=== PATIENT | male | born 1975 | race Caucasian/White ===

== ENCOUNTER 2020-05-30 10:50 | Emergency (ER) | payer BC, SELFPAY ==
[2020-05-30] VITALS (11 sets, daily range): BP systolic 123–146; BP diastolic 85–93; PULSE 93–118; RESP 14–23; TEMP 38.8–38.9; O2SAT 93–96
--- NOTE | ~2020-05-30 | XR_ITS ---
EXAMINATION: XR chest 1V portable INDICATION: Worsening cough and fever TECHNIQUE: Portable AP chest at 1112 hours COMPARISON: None available FINDINGS: There are widespread patchy airspace opacities. No pleural effusion or pneumothorax is iden tified. The cardiomediastinal silhouette is normal. IMPRESSION: 1. Patchy bilateral airspace opacities, likely pneumonia. Reviewed, dictated and finalized at location A.
[2020-05-30] MEDS: SODIUM CHLORIDE 0.9% IV 1,000 ML 999 ML IV CONT (11:32)
[2020-05-30] MEDS: FAMOTIDINE 20 MG/2 ML VIAL IV PUSH (11:33)
[2020-05-30 12:00] LABS: Basophils Percent Auto 0.2 % (0.2-1.2); Hematocrit 48.6 % (42.0-52.0); Hemoglobin 16.9 g/dL (14.0-18.0); Immature Granulocyte Absolute 0.02 K/mm3 (0.00-0.031); Immature Granulocyte Percent A 0.4 % (0-0.5); Lymphocytes Absolute Auto 0.83 K/mm3 (0.9-3.2); Mean Corpuscular HGB Conc 34.8 g/dl (32-36); Mean Platelet Volume 10.5 fl (7.4-10.4); Monocytes Absolute Auto 0.4 K/mm3 (0.1-0.6); Neutrophils Absolute Auto 3.6 K/mm3 (1.3-6.7); Neutrophils Percent Auto 73.4 % (45.5-73.1); Platelet Count Result 127 k/mm3 (150-375); Red Blood Count 5.46 M/mm3 (4.6-6.20); Red Cell Distribution Width 11.9 % (11.5-14.5); White Blood Count 4.9 K/mm3 (4.5-10.0)
[2020-05-30 12:08] LABS: Prothrombin Time 12.6 Seconds (11.1-14.7)
[2020-05-30 12:09] LABS: Partial Thromboplastin Time 30.9 SECONDS (22.3-36.8)
[2020-05-30 12:18] LABS: Alanine Aminotransferase 53 U/L (4-50); Albumin Level 4.4 g/dL (3.5-5.1); Alkaline Phosphatase 73 U/L (38-126); Anion Gap 10 mmol/L (8-16); Aspartate Amino Transferase 56 U/L (17-59); Bilirubin,Total 0.6 mg/dL (0.2-1.3); Blood Urea Nitrogen 11 mg/dL (9-20); Calcium 8.6 mg/dL (8.4-10.2); Carbon Dioxide 27 mmol/L (22-30); Chloride 100 mmol/L (98-107); Estimated CRCL calculation 112 ml/min; Estimated Glomerular Filt Rate > 60; Glucose 103 mg/dL (75-110); Potassium 3.9 mmol/L (3.4-5.0); Sodium 137 mmol/L (137-145)
[2020-05-30 12:35] LABS: CRP 2.3 mg/dL (<1.0)
[2020-05-30 12:55] LABS: Lactic Acid Reflex 0.9 mmol/L (0.7-2.1)
[2020-05-30 13:00] LABS: Add Urine Microscopic? YES; Appearance Urine Clear (Clear); Bacteria Urine Trace /hpf; Bilirubin Urine Negative (Negative); Blood Urine Negative (Negative); Color Urine Yellow (Yellow); Glucose Urine UA Negative (Negative); Ketones Urine Trace mg/dL (Negative); Leukocyte Esterase Ur Negative LEU/UL (Negative); Mucus Urine Rare /lpf; Nitrate Urine Negative (Negative); Protein Urine 1+ mg/dL (Negative); RBC Urine 0-2 /hpf (0-2); Specific Grav Ur 1.028 (1.001-1.035); Squamous Epithelial Cell Urine Rare /hpf (Few); Urobilinogen Urine Negative mg/dL (<2.0); WBC Urine 0-3 /hpf
--- NOTE | 2020-05-30 13:35 | ED.GENADULT ---
HPI - General Adult General Chief complaint: Upper Respiratory Infection <Lee Wu PA-C - Last Filed: 05/30/20 13:52> Stated complaint: cough/dehydration/pain <Lee Wu PA-C - Last Filed: 05/30/20 13:52> Time Seen by Provider: 05/30/20 11:01 <Lee Wu PA-C - Last Filed: 05/30/20 13:52> Source: patient <Lee Wu PA-C - Last Filed: 05/30/20 13:52> Mode of arrival: ambulatory <Lee Wu PA-C - Last Filed: 05/30/20 13:52> Limitations: no limitations <PRIYA Carlton Last Filed: 05/30/20 13:52> History of Present Illness HPI narrative: Patient is a 45-year-old male who presents with nearly 2 weeks duration of upper respiratory symptoms with his sick as well. Patient notes that he has been more dyspneic and fatigued over the last several days with fevers that are not breaking. Patient denies vomiting diarrhea patient on arrival to emergency department resting comfortably in the room in no distress. . Patient does not take anything for his symptoms today has been taking [id number] medications with minimal improvement <Lee Wu PA-C - Last Filed: 05/30/20 13:52> Related Data Allergies/adverse reactions: Allergies Allergy/AdvReac Type Severity Reaction Status Date / Time No Known Allergies Allergy Verified 05/30/20 11:30 <Lee Wu PA-C - Last Filed: 05/30/20 13:52> Review of Systems Review of Systems: All systems reviewed & are unremarkable except as noted in HPI and below <Lee Wu PA-C - Last Filed: 05/30/20 13:52> PMFSH Social History Social History: Social History (Updated 05/30/20 @ 13:37 by Lee Wu PA-C) Smoking status: Never smoker Gender identity (if verbalized by the patient): Male Sexual Orientation (if Verbalized by the Patient): Straight or Heterosexual <Lee Wu PA-C - Last Filed: 05/30/20 13:52> Exam Narrative: Exam Narrative: GENERAL: ill-appearing, well-nourished, and in no acute distress. HEAD: Normocephalic, atraumatic. EYES: PERRLA and EOMI. ENT: Nares clear, no rhinorrhea or epistaxis. Mucous membranes moist. Oropharynx without tonsillar hypertrophy exudate or other lesions. NECK: Supple. No adenopathy or masses. No carotid bruits or JVD CHEST: Clear to auscultation. No respiratory distress. Slight crackles in the lung bases HEART: Regular rate and rhythm. No murmur heard. EXTREMITIES: Normal range of motion. No edema. SKIN: Warm, dry, no rash. NEURO: No focal deficits. Alert and oriented x3. PSYCH: Normal mood and affect. <Lee Wu PA-C - Last Filed: 05/30/20 13:52> Course Course Emergency Course: Patient in the room at this time with improvement with medications likely suffering from COVID-19 pneumonia given the clinical findings and presentation will be tested for COVID patient was able to exert in the room without becoming hypoxic on multiple attempts. Patient has been provided with strict reasons to return and agrees to do so. Patient also advised to buy a home pulse oximeter was given instructions on this and agrees to do so and will follow with his primary care doctor on Sunday to set up for further evaluation <PRIYA Carlton Last Filed: 05/30/20 13:52> Vital Signs Vital signs: Vital Signs Temperature 38.9 C H 05/30/20 10:53 Pulse Rate 118 H 05/30/20 10:53 Respiratory Rate 05/30/20 10:53 Blood Pressure 146/93 H 05/30/20 10:53 Pulse Oximetry 93 05/30/20 10:53 Temperature 38.8 C H 05/30/20 11:43 Pulse Rate 109 H 05/30/20 12:16 Respiratory Rate 05/30/20 12:16 Blood Pressure 124/90 05/30/20 12:15 Pulse Oximetry 94 05/30/20 12:16 <Lee Wu PA-C - Last Filed: 05/30/20 13:52> Vital Signs Temperature 38.9 C H 05/30/20 10:53 Pulse Rate 118 H 05/30/20 10:53 Respiratory Rate 05/30/20 10:53 Blood Pressure 146/93 H 05/30/20
[2020-05-31 11:39] LABS: SARS-CoV-2 RNA PCR Positive
== END 2020-05-30 15:29 | disposition home or self-care (01) ==
PROVIDERS: Emergency Medicine Emergency Medical Services; Emergency Provider Emergency Medicine; PCP Internal Medicine
DX: U07.1 COVID-19 (principal); J12.89 Other viral pneumonia
CPT/HCPCS: 36415; 71045; 80053; 81001; 83605; 85025; 85055; 85610; 85730; 86140; 87040; 87077; 87186; 87635; 96365; 96375; 99284; C9803; J0131; J7030; U0003

== ENCOUNTER 2020-06-01 07:52 | Inpatient (IN) | payer BC, SELFPAY ==
[2020-06-01] VITALS (28 sets, daily range): BP systolic 117–163; BP diastolic 72–104; PULSE 90–134; RESP 16–35; TEMP 36.9–39.4; O2SAT 90–94; BMI 37.5
--- NOTE | ~2020-06-01 | XR_ITS ---
XR chest 1V portable 06/05/2020 07:04 Indication: Pneumonia. Dyspnea. Procedure: AP portable chest Comparison: Comparison to multiple prior studies sequentially, with oldest reviewed study dated 02/2020. Findings: Cardiomegaly with diffuse bilateral airspace disease, unchanged. Atelectasis right midlung. No pleural effusion or pneumothorax. Impression: 1: Stable diffuse bilateral airspace disease, consistent with pneumonia versus edema. 2: Cardiomegaly. Reviewed, dictated and finalized at location A. Impression: 1: Stable diffuse bilateral airspace disease, consistent with pneumonia versus edema. 2: Cardiomegaly.
--- NOTE | ~2020-06-01 | XR_ITS ---
XR chest 1V portable DATE: 06/01/2020 09:08 INDICATION: Pneumonia. Cough, fever, no improvement TECHNIQUE: Portable AP chest on 06/11/2020 at 0901 hours COMPARISON: 05/30/2020 portable AP chest at 1112 hours FINDINGS: There are prominent patchy bilateral infiltrates involving particularly the mid and lower l aron zones, increased since 05/30/2020. No pleural effusion or pneumothorax. IMPRESSION: Increased bilateral pulmonary infiltrates since 05/30/2020 Reviewed, dictated and finalized at location A.
--- NOTE | 2020-06-01 08:05 | ECG_ITS ---
Measurements Intervals [place] Rate: 111 P: 3 PA: 128 QRS: -1 QRSD: 95 T: 29 QT: 305 QTc: 415 Interpretive Statements SINUS TACHYCARDIA VOLTAGE CRITERIA FOR LVH NONSPECIFIC T-WAVE ABNORMALITY- INFERIOR LEADS BASELINE WANDER- I, II, AVR, AVL, AVF ABNORMAL ECG Electronically Signed On 06-01-2020 8:22:23 CDT by Ld Terry D.O.
[2020-06-01 08:36] LABS: Hematocrit 44.3 % (42.0-52.0); Hemoglobin 14.9 g/dL (14.0-18.0); Immature Granulocyte Absolute 0.03 K/mm3 (0.00-0.031); Immature Granulocyte Percent A 0.4 % (0-0.5); Immature Platelet Fraction Pct 4.5 % (0.9-11.2); Lymphocytes Absolute Auto 0.58 K/mm3 (0.9-3.2); Lymphocytes Percent Auto 8.1 % (18.3-44.2); Mean Corpuscular HGB Conc 33.6 g/dl (32-36); Mean Corpuscular Hemoglobin 30.2 pg (26-34); Mean Corpuscular Volume 89.9 fl (80-100); Mean Platelet Volume 10.7 fl (7.4-10.4); Monocytes Absolute Auto 0.3 K/mm3 (0.1-0.6); Monocytes Percent Auto 4.3 % (2.6-8.5); Neutrophils Absolute Auto 6.2 K/mm3 (1.3-6.7); Neutrophils Percent Auto 87.2 % (45.5-73.1); Platelet Count Result 138 k/mm3 (150-375); Red Blood Count 4.93 M/mm3 (4.6-6.20); Red Cell Distribution Width 12.2 % (11.5-14.5); White Blood Count 7.2 K/mm3 (4.5-10.0)
[2020-06-01 08:43] LABS: INR 1.1; Prothrombin Time 13.4 Seconds (11.1-14.7)
[2020-06-01 08:45] LABS: Partial Thromboplastin Time 29.8 SECONDS (22.3-36.8)
[2020-06-01 08:47] LABS: D Dimer 0.69 ug/mL (<0.48); Lactic Acid Reflex 1.7 mmol/L (0.7-2.1)
[2020-06-01 08:47] LABS: Alveolar/Arterial O2 Gradient 58.7 mmHg; Base Excess ABG 1.1 mEq/l (+/-2.0); Carboxyhemoglobin 1.2 % THb (0-2.0); Device ROOM AIR; Fractional Inspired Oxygen 21 %; HCO3 ABG 23.6 mEq/l (22.0-26.0); Methemoglobin ABG 0.1 %THb (0-1.5); Modified Allen's Test Pass; Oxygen Content ABG 18.5 %vol (16.0-22.0); Oxygen Saturation ABG 90.5 % (95.0-100.0); Oxyhemoglobin 88.7 % THb (90.0-100.0); PCO2 ABG 31.6 mmHg (35.0-45.0); PO2 ABG 53.2 mmHg (80.0-100.0); PO2 FiO2 Ratio Arterial Blood 2.53 %; Site Drawn LEFT RADIAL; Total Hemoglobin 14.9 g/dL (12.0-18.0); pH ABG 7.491 (7.350-7.450)
[2020-06-01 08:48] LABS: Alanine Aminotransferase 45 U/L (4-50); Albumin Level 3.9 g/dL (3.5-5.1); Alkaline Phosphatase 57 U/L (38-126); Anion Gap 9 mmol/L (8-16); Aspartate Amino Transferase 60 U/L (17-59); Bilirubin,Total 0.8 mg/dL (0.2-1.3); Blood Urea Nitrogen 12 mg/dL (9-20); Calcium 8.2 mg/dL (8.4-10.2); Carbon Dioxide 28 mmol/L (22-30); Chloride 100 mmol/L (98-107); Estimated CRCL calculation 106 ml/min; Estimated Glomerular Filt Rate > 60; Glucose 119 mg/dL (75-110); Lactate Dehydrogenase 928 U/L (313-618); Magnesium 2.1 mg/dL (1.6-2.3); Sodium 137 mmol/L (137-145)
--- NOTE | 2020-06-01 08:48 | ED.GENADULT ---
HPI - General Adult General Chief complaint: Recheck/Abnormal Lab/Rx Stated complaint: abnormal labs Time Seen by Provider: 06/01/20 08:16 Source: patient Mode of arrival: ambulatory Limitations: no limitations History of Present Illness HPI narrative: This patient is a 45 year old male with COVID 19 who presents for evaluation of worsening sob and fatigue. PAtient reports he was evaluated at [facility] on Sunday for fever and cough. He has continued to have fever and cough so he was told to come to ER . He reports sob and fatigue. He last took medication for a fever last night and he took 600 mg ibuprofen. He reports having nausea and vomiting last night. He denies chest pain, headache and abdominal pain. He states before his symptoms started his had what were sinus symptoms without fever, but her symptoms resolved. Related Data Allergies Allergy/AdvReac Type Severity Reaction Status Date / Time No Known Allergies Allergy Verified 05/30/20 11:30 Review of Systems Review of Systems: All systems reviewed & are unremarkable except as noted in HPI and below Constitutional: Constitutional: Reports chills, Reports fatigue and Reports fever(s) Cardiovascular: Cardiovascular: Denies chest pain Respiratory: Respiratory: Reports cough and Reports dyspnea Gastrointestinal: Gastrointestinal: Denies abdominal pain, Reports nausea and Denies vomiting Musculoskeletal: Musculoskeletal: Denies back pain PMFSH Past Medical History Medical History (Updated 06/01/20 @ 12:09 by Mikie An MD) Patient denies medical problems Family History Family History (Updated 06/01/20 @ 11:04 by Amara Teixeira RN) Father Hypertension Heart disease Mother Hypertension Heart disease Social History Social History (Updated 06/01/20 @ 12:13 by Mikie An MD) Social History: lives with his , 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 [employer] Smoking status: Never smoker Alcohol intake: never Substance use: never Gender identity (if verbalized by the patient): Male Spiritual care concerns: No Exam Const: General: alert and ill appearing; No no acute distress Orientation/consciousness: patient oriented x3 HENMT: Ears: hearing grossly normal bilaterally and TM's normal bilaterally Face and sinus: face symmetric Mouth: Yes Normal oral and palatal mucosa present, Yes lip normal and Yes tongue normal Throat: tonsils normal and uvula midline Eyes: Pupils: Equal, round and reactive pupils present EOM: EOMs intact bilaterally Chest: Chest palpation & inspection: normal inspection of the chest Resp: Effort & Inspection: normal respiratory effort, no retractions and no use of accessory muscles Auscultation: clear to auscultation bilaterally Cardio: Rate: tachycardic Rhythm: regular rhythm Heart sounds: no murmurs GI: GI Palp: Yes Soft to palpation, No Tenderness to palpation present (GI), No Guarding due to palpation present (GI) and No Rigid due to palpation Skin: General skin exam: normal color Rashes: no rashes Neuro: General: patient oriented x3 and moves all extremities Psych: Mental Status: mental status grossly normal Course Consultations Consultation #1: I Discussed with Dr. An patient case. He will be admitted to floor. Date: 06/01/20 Time: 10:04 Vital Signs Vital signs: Vital Signs Temperature 103.0 F H 06/01/20 08:04 Pulse Rate 120 H 06/01/20 08:04 Respiratory Rate 24 H 06/01/20 08:04 Blood Pressure 117/78 06/01/20 08:04 Pulse Oximetry 90 06/01/20 08:04 Temperature 102.5 F H 06/01/20 16:35 Pulse Rate 99 06/01/20 16:00 Respiratory Rate 18 06/01/20 14:00 Blood Pressure 121/72 06/01/20 14:00 Pulse Oximetry 93 06/01/20 14:00 Medical Decision Making Vital Signs Vital Signs: Vital Signs Temperature 103.0 F H 06/01/20 08:04 Pulse Rate 120 H 06/01/20 08:04 Respiratory Rate 24 H 06/01/20 08:04 Bloo
[2020-06-01] MEDS: LACTATED RINGERS 1,000 ML 999 ML IV CONT (08:59)
[2020-06-01 09:11] LABS: Add Urine Microscopic? YES; Appearance Urine Clear (Clear); Bacteria Urine Trace /hpf; Bilirubin Urine Negative (Negative); Blood Urine 1+ (Negative); Color Urine Yellow (Yellow); Glucose Urine UA Negative (Negative); Ketones Urine Trace mg/dL (Negative); Leukocyte Esterase Ur Negative LEU/UL (Negative); Mucus Urine Rare /lpf; Nitrate Urine Negative (Negative); Protein Urine 2+ mg/dL (Negative); RBC Urine 0-2 /hpf (0-2); Specific Grav Ur 1.028 (1.001-1.035); Squamous Epithelial Cell Urine Rare /hpf (Few); Urobilinogen Urine Negative mg/dL (<2.0); WBC Urine 0-3 /hpf
[2020-06-01] MEDS: DEXAMETHASONE 2 MG TABLET 6 MG PO (10:20)
--- NOTE | 2020-06-01 10:45 | PC.NURSE ---
This patient, Naman Felix, was admitted to 3 [facility] [place] Surg Room 326-01. Patient/family oriented to hospital policies and general routines including ID bracelet, bed and alarms, visiting hours, pain management, procedures, bathroom and other care routines, personal items, smoking policy, room service/diet, and visiting hours. Valuables list has been completed. Information on how to activate the Rapid Response Team has been discussed. Patient/Family are encouraged to report perceived risks to care and to ask questions if they do not understand what they are told or what they should do.
[2020-06-01] MEDS: SODIUM CHLORIDE 0.9% IV 1,000 ML 125 ML IV CONT (11:09)
--- NOTE | 2020-06-01 11:58 | PM.IMHP ---
H&P: HPI History of Present Illness Date/Time: 06/01/20 11:58 Chief complaint: COVID pneumonia Narrative: Date of visit 06/01., 1130. Naman Felix is a 45 year old male previously healthy who presented to the ER on the with complaints cough malaise low-grade fever and found to have bilateral infiltrates with subsequent COVID positive findings. He said since that visit his course has gone down hill and checking his O2 sats dipping into the high 80s with rising fever so he returned to the emergency room where chest x-ray looked worse and O2 sat was 88-90 and thus admitted. Coughing nonproductively. No appetite and when he did try to eat did has some diarrhea stools. Smell and taste have been preserved but as stated no appetite. No recent travel and no obvious COVID exposure to his knowledge. Takes no medication on a regular basis and no known allergies Review of Systems Review of Systems: Narrative: Constitutional weight has been steady appetite good prior to the present illness Eye no double vision or scotoma Mouth no pharyngitis laryngitis Pulmonary prior to the present illness no shortness breath wheezing or cough for history of asthma CV no chest pain palpitation or history of murmur GI as per above loose stool no melena hematochezia no dysuria no hematuria Muscle skeletal no particular joint discomfort Integument no skin breakdown rashes PMFSH Past Medical History Medical History (Updated 06/01/20 @ 12:09 by Mikie An MD) Patient denies medical problems Family History Family History (Updated 06/01/20 @ 11:04 by Amara Teixeira RN) Father Hypertension Heart disease Mother Hypertension Heart disease Social History Social History (Updated 06/01/20 @ 12:13 by Mikie An MD) Social History: lives with his , works in fire safety at [employer] Smoking status: Never smoker Alcohol intake: never Substance use: never Gender identity (if verbalized by the patient): Male Spiritual care concerns: No Meds Home Medications and Allergies Home Medications Medication Instructions Recorded Confirmed Type albuterol sulfate 4 inhalation INHALATION Q4H PRN 05/30/20 06/01/20 Rx #6.7 gm azithromycin [Zithromax TRI-ENRRIQUE] See Rx Instructions .ROUTE 05/30/20 06/01/20 Rx .COMPLEX #6 tablet famotidine [Pepcid] 20 mg PO BID #10 tablet 05/30/20 06/01/20 Rx fluticasone propionate [Flonase 2 spray NASAL DAILY #9.9 ml 05/30/20 06/01/20 Rx Allergy Relief] ibuprofen [IBU] 600 mg PO QID PRN #14 tablet 05/30/20 06/01/20 Rx loratadine [Claritin] 10 mg PO DAILY PRN #7 tablet 05/30/20 06/01/20 Rx Allergies Allergy/AdvReac Type Severity Reaction Status Date / Time No Known Allergies Allergy Verified 05/30/20 11:30 Vital Signs Vital Signs - 24 hr 06/01/20 08:04 06/01/20 08:05 06/01/20 08:15 Temperature 39.4 C H Pulse Rate 121 H 119 H 115 H Respiratory Rate 23 H 33 H 21 H Blood Pressure 117/78 117/78 Pulse Oximetry 90 93 06/01/20 08:16 06/01/20 08:31 06/01/20 08:35 Temperature Pulse Rate 117 H 119 H Respiratory Rate 21 H 24 H 28 H Blood Pressure 132/85 Pulse Oximetry 94 93 06/01/20 08:48 06/01/20 08:53 06/01/20 09:00 Temperature Pulse Rate 134 H 119 H Respiratory Rate 24 H 23 H Blood Pressure 163/104 H Pulse Oximetry 06/01/20 09:01 06/01/20 09:15 06/01/20 09:16 Temperature Pulse Rate 127 H 116 H 117 H Respiratory Rate 16 26 H 28 H Blood Pressure 123/90 139/92 H Pulse Oximetry 93 06/01/20 09:29 06/01/20 09:30 06/01/20 09:31 Temperature 37.6 C Pulse Rate 110 H 113 H Respiratory Rate 33 H 30 H Blood Pressure 138/84 Pulse Oximetry 94 06/01/20 09:45 06/01/20 09:46 06/01/20 09:47 Temperature Pulse Rate 109 H 109 H 111 H Respiratory Rate 25 H 28 H 29 H Blood Pressure 127/77 Pulse Oximetry 94 06/01/20 10:11 06/01/20 10:15 06/01/20 10:16 Temperature Pulse Rate
[2020-06-01] MEDS: REMDESIVIR 200 MG/NS 250 ML 200 MG/250 ML BAG 250 MG IVPB (13:53)
[2020-06-01] MEDS: ACETAMINOPHEN 325 MG TABLET 650 MG PO (16:35)
[2020-06-01] MEDS: ENOXAPARIN 40 MG/0.4 ML SYRINGE SUB-Q (20:38)
[2020-06-02] VITALS (9 sets, daily range): BP systolic 102–135; BP diastolic 61–74; PULSE 77–108; RESP 16–20; TEMP 36.3–37.6; O2SAT 90–94
[2020-06-02 06:14] LABS: Basophils Percent Auto 0.1 % (0.2-1.2); Hematocrit 45.4 % (42.0-52.0); Hemoglobin 15.2 g/dL (14.0-18.0); Immature Granulocyte Absolute 0.07 K/mm3 (0.00-0.031); Immature Granulocyte Percent A 0.9 % (0-0.5); Lymphocytes Absolute Auto 0.72 K/mm3 (0.9-3.2); Lymphocytes Percent Auto 9.5 % (18.3-44.2); Mean Corpuscular HGB Conc 33.5 g/dl (32-36); Mean Corpuscular Hemoglobin 30.2 pg (26-34); Mean Corpuscular Volume 90.3 fl (80-100); Mean Platelet Volume 10.5 fl (7.4-10.4); Monocytes Absolute Auto 0.3 K/mm3 (0.1-0.6); Monocytes Percent Auto 3.6 % (2.6-8.5); Neutrophils Absolute Auto 6.5 K/mm3 (1.3-6.7); Neutrophils Percent Auto 85.9 % (45.5-73.1); Platelet Count Result 168 k/mm3 (150-375); Red Blood Count 5.03 M/mm3 (4.6-6.20); Red Cell Distribution Width 12.1 % (11.5-14.5); White Blood Count 7.6 K/mm3 (4.5-10.0)
[2020-06-02 06:34] LABS: Alanine Aminotransferase 53 U/L (4-50); Albumin Level 3.8 g/dL (3.5-5.1); Alkaline Phosphatase 47 U/L (38-126); Anion Gap 8 mmol/L (8-16); Aspartate Amino Transferase 74 U/L (17-59); Bilirubin,Total 0.7 mg/dL (0.2-1.3); Blood Urea Nitrogen 14 mg/dL (9-20); Carbon Dioxide 27 mmol/L (22-30); Chloride 104 mmol/L (98-107); Creatine Kinase 257 U/L (55-170); Estimated CRCL calculation 134 ml/min; Estimated Glomerular Filt Rate > 60; Glucose 131 mg/dL (75-110); Lactate Dehydrogenase 1080 U/L (313-618); Potassium 4.3 mmol/L (3.4-5.0); Sodium 139 mmol/L (137-145)
[2020-06-02 07:02] LABS: Vitamin D 25 Hydroxy 33.4 ng/mL
[2020-06-02 07:17] LABS: Hepatitis B Surface Antigen Negative (Negative)
[2020-06-02 07:23] LABS: HAV RESULT Negative (Negative); Hepatitis B Core IgM Result Negative (Negative)
[2020-06-02 07:34] LABS: Hepatitis C Virus Antibody Negative (Negative)
[2020-06-02 08:13] LABS: CRP 13.1 mg/dL (<1.0)
[2020-06-02] MEDS: DEXAMETHASONE 2 MG TABLET 6 MG PO (08:41)
[2020-06-02] MEDS: ENOXAPARIN 40 MG/0.4 ML SYRINGE SUB-Q ×2 (08:42→20:27)
[2020-06-02] MEDS: ACETAMINOPHEN 325 MG TABLET 650 MG PO (08:44)
[2020-06-02] MEDS: REMDESIVIR 100 MG/NS 250 ML 100 MG/250 ML BAG 250 MG IVPB (12:20)
[2020-06-02] MEDS: ALBUTEROL SULFATE (*SP) AEROSOL 1 PUFF 2 PUFF INHALATION (17:05)
--- NOTE | 2020-06-02 17:36 | PM.IMPN ---
Progress Note: A&P Assessment and Plan (1) Acute respiratory failure due to COVID-19: Code(s): U07.1 - COVID-19; J96.00 - Acute respiratory failure, unspecified whether with hypoxia or hypercapnia Status: Acute Assessment and Plan: O2 sats documented in the high 80s at home and tachypneic here to try to maintain O2 sats at 90. O2 supplement nasal cannula now at 6 L but he is much more comfortable and less tachypneic (2) Pneumonia due to COVID-19 virus: Code(s): U07.1 - COVID-19; J12.89 - Other viral pneumonia Status: Acute Assessment and Plan: Meets criteria for severe disease with O2 sats in the high 80s and will receive Decadron 6 mg daily with remdesivir 200 daily both day 2. Inflammatory markers all elevated but not severely so and will follow (3) Elevated LFTs: Code(s): R79.89 - Other specified abnormal findings of blood chemistry Status: Acute Assessment and Plan: Borderline elevation. hepatitis profile negative but most likely from infection or fatty infiltration but followed closely with the remdesivir (4) DVT prophylaxis: Code(s): Z29.9 - Encounter for prophylactic measures, unspecified Status: Acute Assessment and Plan: Lovenox 40 b.i.d. given his body habitus as well as higher incidence of thrombo embolic phenomena with COVID Subjective Date/time seen: 06/02/20 17:36 Interval history: date of visit 06/02. 45-year-old male with known COVID admitted with increasing shortness of breath fever and hypoxia. Feels much better today with fever down and less short of breath but of O2 has been increased. appetite good Exam Narrative: Exam Narrative: Blood pressure 112/74 pulse is 82 and respirations 18 per minute saturating 94% on 6LNC with a temp of 37.6 and T-max of 39.2? some 12 hours ago Pupil equal reactive to light sclera anicteric Mouth normal Lungs clear no wheezing consolidation CV no murmurs gallops rubs or clicks does tachy Abdomen is soft nontender no masses Extremities without edema distal pulses are 2+ Objective Data Vital Signs Vital Signs: Vital Signs - 24 hr 06/01/20 20:00 06/02/20 00:00 06/02/20 04:00 Temperature 37.1 C 36.9 C 36.8 C Pulse Rate 90 86 87 Respiratory Rate 20 20 20 Blood Pressure 123/86 102/61 111/72 Pulse Oximetry 90 90 93 06/02/20 06:00 06/02/20 08:00 06/02/20 08:44 Temperature 37.6 C 37.6 C Pulse Rate 86 Respiratory Rate 18 Blood Pressure 120/63 Pulse Oximetry 93 90 06/02/20 09:57 06/02/20 12:00 Temperature 36.7 C Pulse Rate 82 Respiratory Rate 18 Blood Pressure 112/74 Pulse Oximetry 90 94 Intake/Output Intake/Output: Intake & Output 05/30/20 05/31/20 06/01/20 06/02/20 23:59 23:59 23:59 23:59 Intake Total 3680 1250 Output Total 875 400 Balance 2805 850 Meds/Results Medications: Active Medications Generic Name Dose Route Start Last Admin Trade Name Freq PRN Reason Stop Dose Admin Acetaminophen 650 mg 06/01/20 11:20 06/02/20 08:44 Tylenol Tablet PO 650 mg Q4H PRN Administration Mild Pain (1-3) or Fever Albuterol 2 puff 06/02/20 12:00 06/02/20 17:05 Proventil Hfa INHALATION 2 puff QIDRT AYDEE Administration Dexamethasone 6 mg 06/02/20 08:00 06/02/20 08:41 Dexamethasone Po PO 06/11/20 08:01 6 mg DAILY@0800 AYDEE Administration Enoxaparin Sodium 40 mg 06/01/20 21:00 06/02/20 08:42 Lovenox SUB-Q 40 mg Q12HR AYDEE Administration Guaifenesin/Dextromethorphan 10 ml 06/02/20 11:19 Robitussin-Dm Syrup PO Q4H PRN Cough Remdesivir 100 mg in 250 mls @ 250 mls/hr 06/02/20 13:00 06/02/20 13:20 IVPB 06/05/20 13:59 Infused Q24H AYDEE Infusion Ondansetron HCl 4 mg 06/01/20 10:05 Zofran Inj IV PUSH Q4H PRN Nausea Radiology Results: ITS Impressions Chest X-Ray 06/01/20 09:09 IMPRESSION: Increased bilateral pulmonary infiltrates since 05/30/2020 Labs Labs:
--- NOTE | 2020-06-02 22:03 | PCRCNOTE ---
no MDI, in ED
[2020-06-03] VITALS (16 sets, daily range): BP systolic 110–126; BP diastolic 70–85; PULSE 71–100; RESP 16–20; TEMP 36.3–37; O2SAT 87–97
[2020-06-03 06:30] LABS: Alanine Aminotransferase 49 U/L (4-50); Albumin Level 3.3 g/dL (3.5-5.1); Alkaline Phosphatase 46 U/L (38-126); Anion Gap 8 mmol/L (8-16); Aspartate Amino Transferase 49 U/L (17-59); Bilirubin,Total 0.7 mg/dL (0.2-1.3); Blood Urea Nitrogen 17 mg/dL (9-20); CRP 4.9 mg/dL (<1.0); Calcium 8.2 mg/dL (8.4-10.2); Carbon Dioxide 26 mmol/L (22-30); Chloride 105 mmol/L (98-107); Estimated CRCL calculation 134 ml/min; Estimated Glomerular Filt Rate > 60; Glucose 127 mg/dL (75-110); Lactate Dehydrogenase 808 U/L (313-618); Potassium 3.9 mmol/L (3.4-5.0); Sodium 139 mmol/L (137-145)
[2020-06-03] MEDS: DEXAMETHASONE 2 MG TABLET 6 MG PO (08:51)
[2020-06-03] MEDS: ENOXAPARIN 40 MG/0.4 ML SYRINGE SUB-Q ×2 (08:51→22:00)
[2020-06-03] MEDS: ALBUTEROL SULFATE (*SP) AEROSOL 1 PUFF 2 PUFF INHALATION ×4 (09:12→20:47)
[2020-06-03] MEDS: REMDESIVIR 100 MG/NS 250 ML 100 MG/250 ML BAG 250 MG IVPB (13:00)
--- NOTE | 2020-06-03 17:09 | PM.IMPN ---
Progress Note: A&P Assessment and Plan (1) Acute respiratory failure due to COVID-19: Code(s): U07.1 - COVID-19; J96.00 - Acute respiratory failure, unspecified whether with hypoxia or hypercapnia Status: Acute Assessment and Plan: O2 sats documented in the high 80s at home and tachypneic initially here to try to maintain O2 sats at 90. O2 supplement nasal cannula now at 7 L but he is much more comfortable and less tachypneic, continue to moniter (2) Pneumonia due to COVID-19 virus: Code(s): U07.1 - COVID-19; J12.89 - Other viral pneumonia Status: Acute Assessment and Plan: Meets criteria for severe disease with O2 sats in the high 80s and receiving Decadron 6 mg daily with remdesivir 200 daily both day 3. Inflammatory markers all following except ferritin still 1900 repeat am with repeat cxr then too add incentive spirometry (3) Elevated LFTs: Code(s): R79.89 - Other specified abnormal findings of blood chemistry Status: Acute Assessment and Plan: Borderline elevation. hepatitis profile negative but most likely from infection or fatty infiltration but all normal today (4) DVT prophylaxis: Code(s): Z29.9 - Encounter for prophylactic measures, unspecified Status: Acute Assessment and Plan: Lovenox 40 b.i.d. given his body habitus as well as higher incidence of thrombo embolic phenomena with COVID Subjective Date/time seen: 06/03/20 17:09 Interval history: date of visit 06/03. 45-year-old male with known COVID admitted with increasing shortness of breath fever and hypoxia. Feels much better today with fever down and less short of breath but O2 has been increased. appetite good Exam Narrative: Exam Narrative: Blood pressure 114/70 pulse is 76 and respirations 18 per minute saturating 92% on 7LNC with a temp of 37 and T-max of 37.3 Pupil equal reactive to light sclera anicteric Mouth normal Lungs clear no wheezing consolidation CV no murmurs gallops rubs or clicks Abdomen is soft nontender no masses Extremities without edema distal pulses are 2+ Objective Data Vital Signs Vital Signs: Vital Signs - 24 hr 06/02/20 20:00 06/03/20 00:00 06/03/20 04:00 Temperature 36.3 C L 36.6 C 36.9 C Pulse Rate 108 H 71 82 Respiratory Rate 18 18 20 Blood Pressure 118/67 115/77 110/71 Pulse Oximetry 90 94 90 06/03/20 04:10 06/03/20 08:00 06/03/20 09:15 Temperature 36.9 C Pulse Rate 79 Respiratory Rate 18 Blood Pressure 113/70 Pulse Oximetry 90 91 91 06/03/20 10:00 06/03/20 10:05 06/03/20 11:25 Temperature Pulse Rate Respiratory Rate Blood Pressure Pulse Oximetry 95 92 87 L 06/03/20 12:00 06/03/20 12:30 06/03/20 15:04 Temperature 36.3 C L Pulse Rate 85 Respiratory Rate 16 Blood Pressure 126/83 Pulse Oximetry 91 91 97 06/03/20 15:05 06/03/20 16:26 Temperature Pulse Rate Respiratory Rate Blood Pressure Pulse Oximetry 94 92 Intake/Output Intake/Output: Intake & Output 05/31/20 06/01/20 06/02/20 06/03/20 23:59 23:59 23:59 23:59 Intake Total 3680 2590 860 Output Total 875 900 200 Balance 2805 1690 660 Meds/Results Medications: Active Medications Generic Name Dose Route Start Last Admin Trade Name Freq PRN Reason Stop Dose Admin Acetaminophen 650 mg 06/01/20 11:20 06/02/20 08:44 Tylenol Tablet PO 650 mg Q4H PRN Administration Mild Pain (1-3) or Fever Albuterol 2 puff 06/02/20 12:00 06/03/20 16:16 Proventil Hfa INHALATION 2 puff QIDRT AYDEE Administration Dexamethasone 6 mg 06/02/20 08:00 06/03/20 08:51 Dexamethasone Po PO 06/11/20 08:01 6 mg DAILY@0800 AYDEE Administration Enoxaparin Sodium 40 mg 06/01/20 21:00 06/03/20 08:51 Lovenox SUB-Q 40 mg Q12HR AYDEE Administration Guaifenesin/Dextromethorphan 10 ml 06/02/20 11:19 Robitussin-Dm Syrup PO Q4H PRN Cough Remdesivir 100 mg in 250 mls @ 250 mls/hr 0
[2020-06-03] MEDS: guaiFENesin/DEXTROMETHORPHAN 10 ML UDC PO (18:09)
[2020-06-04] VITALS (10 sets, daily range): BP systolic 115–130; BP diastolic 67–78; PULSE 61–79; RESP 18; TEMP 36.6–37.2; O2SAT 93–96
[2020-06-04 06:16] LABS: D Dimer 0.51 ug/mL (<0.48)
[2020-06-04 06:36] LABS: Alanine Aminotransferase 57 U/L (4-50); Lactate Dehydrogenase 821 U/L (313-618)
[2020-06-04] MEDS: ALBUTEROL SULFATE (*SP) AEROSOL 1 PUFF 2 PUFF INHALATION ×4 (10:07→20:26)
[2020-06-04] MEDS: DEXAMETHASONE 2 MG TABLET 6 MG PO (10:18)
[2020-06-04] MEDS: ENOXAPARIN 40 MG/0.4 ML SYRINGE SUB-Q ×2 (10:18→21:08)
--- NOTE | 2020-06-04 10:50 | PC.NURSE ---
Turned pt o2 down from 5L to 4L NC. Patient is now at 94%.
[2020-06-04] MEDS: REMDESIVIR 100 MG/NS 250 ML 100 MG/250 ML BAG 250 MG IVPB (13:13)
--- NOTE | 2020-06-04 16:49 | PM.IMPN ---
Progress Note: A&P Assessment and Plan (1) Acute respiratory failure due to COVID-19: Code(s): U07.1 - COVID-19; J96.00 - Acute respiratory failure, unspecified whether with hypoxia or hypercapnia Status: Acute Assessment and Plan: O2 sats documented in the high 80s at home and tachypneic initially here to try to maintain O2 sats at 90. O2 supplement nasal cannula now at 4 L and is much more comfortable and less tachypneic, continue to moniter and taper as possible (2) Pneumonia due to COVID-19 virus: Code(s): U07.1 - COVID-19; J12.89 - Other viral pneumonia Status: Acute Assessment and Plan: Meets criteria for severe disease with O2 sats in the high 80s and receiving Decadron 6 mg daily with remdesivir 200 daily both day 4. Inflammatory markers all following repeat am with repeat cxr then too added incentive spirometry 06/03 (3) Elevated LFTs: Code(s): R79.89 - Other specified abnormal findings of blood chemistry Status: Acute Assessment and Plan: Borderline elevation. hepatitis profile negative but most likely from infection or fatty infiltration (4) DVT prophylaxis: Code(s): Z29.9 - Encounter for prophylactic measures, unspecified Status: Acute Assessment and Plan: Lovenox 40 b.i.d. given his body habitus as well as higher incidence of thrombo embolic phenomena with COVID Subjective Date/time seen: 06/04/20 16:49 Interval history: date of visit 06/04. 45-year-old male with known COVID admitted with increasing shortness of breath fever and hypoxia. Feels much better today with fever down and less short of breath . appetite good Exam Narrative: Exam Narrative: Blood pressure 126/74 pulse is 70 and respirations 18 per minute saturating 95% on 4LNC with a temp of 37 and T-max of 37.2 Pupil equal reactive to light sclera anicteric Mouth normal Lungs faint post basal crackles CV no murmurs gallops rubs or clicks Abdomen is soft nontender no masses Extremities without edema distal pulses are 2+ Objective Data Vital Signs Vital Signs: Vital Signs - 24 hr 06/03/20 20:00 06/03/20 20:48 06/04/20 00:00 Temperature 36.7 C 37.2 C Pulse Rate 72 100 61 Respiratory Rate 18 20 18 Blood Pressure 125/85 126/78 Pulse Oximetry 93 93 94 06/04/20 04:00 06/04/20 06:26 06/04/20 08:00 Temperature 37.0 C 36.7 C Pulse Rate 70 79 Respiratory Rate 18 18 Blood Pressure 118/77 117/76 Pulse Oximetry 95 94 96 06/04/20 10:08 06/04/20 10:47 06/04/20 12:00 Temperature 36.8 C Pulse Rate 70 Respiratory Rate 18 Blood Pressure 115/67 Pulse Oximetry 93 96 95 06/04/20 16:00 Temperature 36.7 C Pulse Rate 71 Respiratory Rate 18 Blood Pressure 127/75 Pulse Oximetry 95 Intake/Output Intake/Output: Intake & Output 06/01/20 06/02/20 06/03/20 06/04/20 23:59 23:59 23:59 23:59 Intake Total 3680 2590 2440 1540 Output Total 792 406 3306 1700 Balance 2805 1690 1140 -160 Meds/Results Medications: Active Medications Generic Name Dose Route Start Last Admin Trade Name Freq PRN Reason Stop Dose Admin Acetaminophen 650 mg 06/01/20 11:20 06/02/20 08:44 Tylenol Tablet PO 650 mg Q4H PRN Administration Mild Pain (1-3) or Fever Albuterol 2 puff 06/02/20 12:00 06/04/20 14:35 Proventil Hfa INHALATION 2 puff QIDRT AYDEE Administration Dexamethasone 6 mg 06/02/20 08:00 06/04/20 10:18 Dexamethasone Po PO 06/11/20 08:01 6 mg DAILY@0800 AYDEE Administration Enoxaparin Sodium 40 mg 06/01/20 21:00 06/04/20 10:18 Lovenox SUB-Q 40 mg Q12HR AYDEE Administration Guaifenesin/Dextromethorphan 10 ml 06/02/20 11:19 06/03/20 18:09 Robitussin-Dm Syrup PO 10 ml Q4H PRN Administration Cough Remdesivir 100 mg in 250 mls @ 250 mls/hr 06/02/20 13:00 06/04/20 13:13 IVPB 06/05/20 13:59 250 mls/hr Q24H AYDEE Administration Ondansetron HCl 4 mg 06/01/20 10:05 Zofran Inj IV PUSH
[2020-06-04] MEDS: guaiFENesin/DEXTROMETHORPHAN 10 ML UDC PO (21:16)
[2020-06-05] VITALS (15 sets, daily range): BP systolic 111–131; BP diastolic 72–91; PULSE 55–88; RESP 16–18; TEMP 36.5–37; O2SAT 93–97
[2020-06-05 07:30] LABS: Alanine Aminotransferase 153 U/L (4-50)
[2020-06-05 07:41] LABS: Alanine Aminotransferase 153 U/L (4-50); Albumin Level 3.1 g/dL (3.5-5.1); Alkaline Phosphatase 43 U/L (38-126); Anion Gap 7 mmol/L (8-16); Aspartate Amino Transferase 96 U/L (17-59); Bilirubin,Total 0.8 mg/dL (0.2-1.3); Blood Urea Nitrogen 18 mg/dL (9-20); CRP 1.8 mg/dL (<1.0); Calcium 8.1 mg/dL (8.4-10.2); Carbon Dioxide 27 mmol/L (22-30); Chloride 104 mmol/L (98-107); Estimated CRCL calculation 151 ml/min; Estimated Glomerular Filt Rate > 60; Glucose 104 mg/dL (75-110); Lactate Dehydrogenase 659 U/L (313-618); Potassium 4.1 mmol/L (3.4-5.0); Sodium 138 mmol/L (137-145)
[2020-06-05] MEDS: DEXAMETHASONE 2 MG TABLET 6 MG PO (08:30)
[2020-06-05] MEDS: guaiFENesin/DEXTROMETHORPHAN 10 ML UDC PO ×2 (08:30→17:45)
[2020-06-05] MEDS: ENOXAPARIN 40 MG/0.4 ML SYRINGE SUB-Q ×2 (08:30→21:42)
[2020-06-05] MEDS: ALBUTEROL SULFATE (*SP) AEROSOL 1 PUFF 2 PUFF INHALATION ×4 (08:32→20:43)
[2020-06-05] MEDS: REMDESIVIR 100 MG/NS 250 ML 100 MG/250 ML BAG 250 MG IVPB (13:20)
--- NOTE | 2020-06-05 15:02 | PM.IMPN ---
Progress Note: A&P Assessment and Plan (1) Acute respiratory failure due to COVID-19: Code(s): U07.1 - COVID-19; J96.00 - Acute respiratory failure, unspecified whether with hypoxia or hypercapnia Status: Acute Assessment and Plan: O2 sats documented in the high 80s at home and tachypneic initially here to try to maintain O2 sats at 90. O2 supplement nasal cannula now at 2 L and is much more comfortable and less tachypneic, continue to moniter and taper as possible (2) Pneumonia due to COVID-19 virus: Code(s): U07.1 - COVID-19; J12.89 - Other viral pneumonia Status: Acute Assessment and Plan: Meets criteria for severe disease with O2 sats in the high 80s and receiving Decadron 6 mg daily with remdesivir 200 daily both day 5. Inflammatory markers all following repeat am with repeat cxr then too added incentive spirometry 06/03 (3) Elevated LFTs: Code(s): R79.89 - Other specified abnormal findings of blood chemistry Status: Acute Assessment and Plan: Borderline elevation. hepatitis profile negative but most likely from infection or fatty infiltration ALT up to 153 today ?remdesivir, last dose today and continue to trend , may need US or CT later (4) DVT prophylaxis: Code(s): Z29.9 - Encounter for prophylactic measures, unspecified Status: Acute Assessment and Plan: Lovenox 40 b.i.d. given his body habitus as well as higher incidence of thrombo embolic phenomena with COVID Subjective Date/time seen: 06/05/20 15:02 Interval history: date of visit 06/05. 45-year-old male with known COVID admitted with increasing shortness of breath fever and hypoxia. Feels much better today with fever down and less short of breath . appetite good Still coughing and some productively Exam Narrative: Exam Narrative: Blood pressure 110/72 pulse is 66 and respirations 16 per minute saturating 96% on 2LNC and afebrile Pupil equal reactive to light sclera anicteric Mouth normal Lungs clear today CV no murmurs gallops rubs or clicks Abdomen is soft nontender no masses Extremities without edema distal pulses are 2+ Objective Data Vital Signs Vital Signs: Vital Signs - 24 hr 06/04/20 16:00 06/04/20 20:00 06/05/20 00:00 Temperature 36.7 C 36.6 C 36.6 C Pulse Rate 75 66 57 L Respiratory Rate 18 18 18 Blood Pressure 127/75 130/75 120/74 Pulse Oximetry 95 96 97 06/05/20 00:08 06/05/20 04:00 06/05/20 08:00 Temperature 36.6 C 36.8 C Pulse Rate 69 81 Respiratory Rate 16 18 Blood Pressure 131/91 H 117/77 Pulse Oximetry 93 95 95 06/05/20 08:33 06/05/20 12:00 06/05/20 12:57 Temperature 36.5 C Pulse Rate 71 65 68 Respiratory Rate 18 18 18 Blood Pressure 111/72 Pulse Oximetry 96 96 96 Intake/Output Intake/Output: Intake & Output 06/02/20 06/03/20 06/04/20 06/05/20 23:59 23:59 23:59 23:59 Intake Total 2590 2440 3470 690 Output Total 900 1300 2600 1050 Balance 1690 1140 870 -360 Meds/Results Medications: Active Medications Generic Name Dose Route Start Last Admin Trade Name Freq PRN Reason Stop Dose Admin Acetaminophen 650 mg 06/01/20 11:20 06/02/20 08:44 Tylenol Tablet PO 650 mg Q4H PRN Administration Mild Pain (1-3) or Fever Albuterol 2 puff 06/02/20 12:00 06/05/20 12:17 Proventil Hfa INHALATION 2 puff QIDRT AYDEE Administration Dexamethasone 6 mg 06/02/20 08:00 06/05/20 08:30 Dexamethasone Po PO 06/11/20 08:01 6 mg DAILY@0800 AYDEE Administration Enoxaparin Sodium 40 mg 06/01/20 21:00 06/05/20 08:30 Lovenox SUB-Q 40 mg Q12HR AYDEE Administration Guaifenesin/Dextromethorphan 10 ml 06/02/20 11:19 06/05/20 08:30 Robitussin-Dm Syrup PO 10 ml Q4H PRN Administration Cough Ondansetron HCl 4 mg 06/01/20 10:05 Zofran Inj IV PUSH Q4H PRN Nausea Radiology Results: ITS Impressions Chest X-Ray 06/05/20 07:37 Impression: 1: Stable diffuse bilater
[2020-06-06] VITALS (7 sets, daily range): BP systolic 111–126; BP diastolic 67–79; PULSE 55–95; RESP 16–18; TEMP 36.7–37.1; O2SAT 91–96
[2020-06-06] MEDS: ALBUTEROL SULFATE (*SP) AEROSOL 1 PUFF 2 PUFF INHALATION ×4 (07:43→22:31)
[2020-06-06 07:52] LABS: Alanine Aminotransferase 202 U/L (4-50); Albumin Level 3.2 g/dL (3.5-5.1); Alkaline Phosphatase 44 U/L (38-126); Anion Gap 4 mmol/L (8-16); Aspartate Amino Transferase 87 U/L (17-59); Bilirubin,Total 0.8 mg/dL (0.2-1.3); Blood Urea Nitrogen 17 mg/dL (9-20); CRP 1.4 mg/dL (<1.0); Calcium 8.1 mg/dL (8.4-10.2); Carbon Dioxide 30 mmol/L (22-30); Chloride 103 mmol/L (98-107); Estimated CRCL calculation 134 ml/min; Estimated Glomerular Filt Rate > 60; Glucose 88 mg/dL (75-110); Lactate Dehydrogenase 648 U/L (313-618); Potassium 4.2 mmol/L (3.4-5.0); Sodium 137 mmol/L (137-145)
[2020-06-06] MEDS: DEXAMETHASONE 2 MG TABLET 6 MG PO (08:20)
[2020-06-06] MEDS: ENOXAPARIN 40 MG/0.4 ML SYRINGE SUB-Q ×2 (08:20→20:38)
--- NOTE | 2020-06-06 15:58 | PM.IMPN ---
Progress Note: A&P Assessment and Plan (1) Acute respiratory failure due to COVID-19: Code(s): U07.1 - COVID-19; J96.00 - Acute respiratory failure, unspecified whether with hypoxia or hypercapnia Status: Acute Assessment and Plan: O2 sats documented in the high 80s at home and tachypneic initially here to try to maintain O2 sats at 90. O2 supplement nasal cannula now at 2 L and is much more comfortable and less tachypneic, continue to moniter and taper as possible (2) Pneumonia due to COVID-19 virus: Code(s): U07.1 - COVID-19; J12.89 - Other viral pneumonia Status: Acute Assessment and Plan: Meets criteria for severe disease with O2 sats in the high 80s and receiving Decadron 6 mg daily(D #6) with remdesivir 200 daily 5 day finished 06/05 Inflammatory markers all following repeat cxr 06/05 no real change added incentive spirometry 06/03 (3) Elevated LFTs: Code(s): R79.89 - Other specified abnormal findings of blood chemistry Status: Acute Assessment and Plan: Borderline elevation. hepatitis profile negative but most likely from infection or fatty infiltration ALT up to 202 today ?remdesivir, last dose 06/05 and continue to trend , may need US if goes higher but prob secondary Covid or med (4) DVT prophylaxis: Code(s): Z29.9 - Encounter for prophylactic measures, unspecified Status: Acute Assessment and Plan: Lovenox 40 b.i.d. given his body habitus as well as higher incidence of thrombo embolic phenomena with COVID Subjective Date/time seen: 06/06/20 15:58 Interval history: date of visit 06/06. 45-year-old male with known COVID admitted with increasing shortness of breath fever and hypoxia. Feels much better today with fever gone and less short of breath and . appetite good Still coughing and some productively Exam Narrative: Exam Narrative: Blood pressure 114/66 pulse is 78 and respirations 16 per minute saturating 95% on RA and afebrile Pupil equal reactive to light sclera anicteric Mouth normal Lungs clear today CV no murmurs gallops rubs or clicks Abdomen is soft nontender no masses Extremities without edema distal pulses are 2+ Objective Data Vital Signs Vital Signs: Vital Signs - 24 hr 06/05/20 16:00 06/05/20 17:00 06/05/20 20:00 Temperature 36.7 C 37.0 C Pulse Rate 86 88 66 Respiratory Rate 18 18 Blood Pressure 119/75 119/74 Pulse Oximetry 95 97 06/05/20 20:24 06/05/20 20:43 06/05/20 20:44 Temperature Pulse Rate 84 71 71 Respiratory Rate 18 Blood Pressure Pulse Oximetry 95 06/05/20 22:16 06/06/20 00:00 06/06/20 04:00 Temperature 37.1 C 36.8 C Pulse Rate 62 72 Respiratory Rate 18 16 Blood Pressure 121/79 118/76 Pulse Oximetry 95 92 91 06/06/20 07:43 06/06/20 08:00 06/06/20 12:00 Temperature 36.8 C 36.7 C Pulse Rate 72 73 79 Respiratory Rate 18 16 18 Blood Pressure 111/77 113/67 Pulse Oximetry 95 95 95 Intake/Output Intake/Output: Intake & Output 06/03/20 06/04/20 06/05/20 06/06/20 23:59 23:59 23:59 23:59 Intake Total 2440 3470 1920 1390 Output Total 1300 2600 1850 1100 Balance 1140 870 70 290 Meds/Results Medications: Active Medications Generic Name Dose Route Start Last Admin Trade Name Freq PRN Reason Stop Dose Admin Acetaminophen 650 mg 06/01/20 11:20 06/02/20 08:44 Tylenol Tablet PO 650 mg Q4H PRN Administration Mild Pain (1-3) or Fever Albuterol 2 puff 06/02/20 12:00 06/06/20 11:59 Proventil Hfa INHALATION 2 puff QIDRT AYDEE Administration Dexamethasone 6 mg 06/02/20 08:00 06/06/20 08:20 Dexamethasone Po PO 06/11/20 08:01 6 mg DAILY@0800 AYDEE Administration Enoxaparin Sodium 40 mg 06/01/20 21:00 06/06/20 08:20 Lovenox SUB-Q 40 mg Q12HR AYDEE Administration Guaifenesin/Dextromethorphan 10 ml 06/02/20 11:19 06/05/20 17:45 Robitussin-Dm Syrup PO 10 ml Q4H PRN Administration Cough Onda
[2020-06-07] VITALS: BP 114/70; PULSE 57; RESP 18; TEMP 36.6; O2SAT 93
[2020-06-07 04:00] VITALS: BP 100/58; PULSE 53; RESP 18; TEMP 36.9; O2SAT 94
[2020-06-07 07:32] LABS: Alanine Aminotransferase 204 U/L (4-50); Albumin Level 3.3 g/dL (3.5-5.1); Alkaline Phosphatase 47 U/L (38-126); Aspartate Amino Transferase 75 U/L (17-59); Bilirubin,Total 0.8 mg/dL (0.2-1.3)
[2020-06-07 08:00] VITALS: BP 114/66; PULSE 62; RESP 18; TEMP 36; O2SAT 95
[2020-06-07] MEDS: DEXAMETHASONE 2 MG TABLET 6 MG PO (09:01)
[2020-06-07] MEDS: ALBUTEROL SULFATE (*SP) AEROSOL 1 PUFF 2 PUFF INHALATION (09:14)
--- NOTE | 2020-06-09 07:48 | PM.DS ---
DS: Admitting Diagnosis Admitting Diagnosis Admitting Diagnosis: COVID pneumonia DS: Discharge Diagnosis Discharge Diagnosis (1) Acute respiratory failure due to COVID-19: Code(s): U07.1 - COVID-19; J96.00 - Acute respiratory failure, unspecified whether with hypoxia or hypercapnia Status: Acute Assessment and Plan: O2 sats documented in the high 80s at home and tachypneic initially here to try to maintain O2 sats at 90. O2 saturation on room air for 24 hours prior to discharge 95% at the time of discharge (2) Pneumonia due to COVID-19 virus: Code(s): U07.1 - COVID-19; J12.89 - Other viral pneumonia Status: Acute Assessment and Plan: Met criteria for severe disease with O2 sats in the high 80s and received Decadron 6 mg daily(D #6) while here and 1 day post discharge for total of 7 days treatment, and with remdesivir 200 daily 5 day finished 06/05 Inflammatory markers all fell repeat cxr 06/05 no real change added incentive spirometry 06/03 as above O2 sat 95% on room air and discharge (3) Elevated LFTs: Code(s): R79.89 - Other specified abnormal findings of blood chemistry Status: Acute Assessment and Plan: Borderline elevation. hepatitis profile negative but most likely from infection or fatty infiltration ALT up to 202 06/06 and stable at 204 06/07, ?remdesivir, last dose 06/05 will liver profile drawn cmp in 1 week to assess further. Hepatitis a B and C profile was negative as above DS: Summary Hospital Course Hospital Course: 45-year-old male with known COVID diagnosed approximately 48 hours prior to admission returned with increasing shortness of breath and falling O2 saturation.. Initially was tachypneic to maintain O2 sats at 90% and did require as much as 6 L nasal cannula while admitted. Received 5 days of remdesivir dexamethasone 6 mg daily.. Inflammatory markers all fell and was saturating on room air 94-95% 24 hours prior to discharge LFTs remained elevated with ALT and approximately 4 times normal at 204 day of discharge but stable from the prior day. Whether this was from covered self or medication induced was unknown. He will follow-up with his primary to have repeat CMP in 1 week. Return to work will be decided by primary Time Spent with Patient Time attestation: Total time spent providing and/or coordinating discharge services: 35 minutes Exam Narrative: Exam Narrative: Condition on discharge blood pressure 114/66 pulse is 62 respirations 18 per minute saturating 95% on room air, afebrile lungs clear CV regular rate rhythm without murmurs abdomen soft nontender no masses extremities without edema Discharge Plan Discharge Attending physician on discharge: Mikie An Discharging Clinician: Mikie An Patient Disposition: Home, Self-Care Activity: as tolerated Diet: regular Discharge Instructions: Determine Return to work after seen by primary care Patient Instructions: Antibiotic Form, Urinary Tract Infection in Men (DC), Pain Management (DC), How To Wash Your Hands (DC), COVID-19 (Coronavirus Disease 2019) (DC), Face Coverings (Masks) and COVID-19 (DC) Stand Alone Forms: General Discharge Information Follow-up/Referrals: Suresh,Kavon Sung MD [Primary Care Provider] - 1 Week Discharge Medications: New dexamethasone 6 mg tablet 6 mg PO DAILY Qty: 1 RF: 0 Continued albuterol sulfate 90 mcg/actuation HFA aerosol inhaler 4 inhalation INHALATION Q4H PRN (Reason: shortness of breath or wheezing) Qty: 6.7 RF: 0 loratadine [Claritin] 10 mg tablet 10 mg PO DAILY PRN (Reason: allergy symptoms) Qty: 7 RF: 0 famotidine [Pepcid] 20 mg tablet 20 mg PO BID Qty: 10 RF: 0 fluticasone propionate [Flonase Allergy Relief] 50 mcg/actuation spray,suspension 2 spray NASAL DAILY Qty: 9.9 RF: 0 Discontinued ibuprofen [IBU] 600 mg tablet 600 mg PO QID PRN (
== END 2020-06-07 12:25 | disposition home or self-care (01) | DRG 177 ==
LOC: ANHED 08:34 → ANH3MEDSUR 10:17
PROVIDERS: Admitting Provider Internal Medicine; Emergency Provider General Practice; PCP Internal Medicine; Visit Provider Internal Medicine
DX: U07.1 COVID-19 (principal); J12.89 Other viral pneumonia; J96.00 Acute respiratory failure, unspecified whether with hypoxia or hypercapnia
CPT/HCPCS: 36415; 36600; 71045; 80053; 80074; 80076; 81001; 82248; 82306; 82375; 82550; 82728; 82805; 83050; 83605; 83615; 83735; 84460; 85025; 85055; 85380; 85610; 85730; 86140; 87040; 93005; 94640; 96361; 96374; 99285; A9270; J0131; J1650; J7030; J7120; J8540

== ENCOUNTER 2020-06-14 11:33 | Outpatient (CLI) | payer BC, SELFPAY ==
--- NOTE | ~2020-06-14 | XR_ITS ---
XR chest 2V 06/14/2020 11:57 Indication: Pneumonia Procedure: 2 view chest Comparison: 06/05/2020 Findings: There is mild interstitial edema. Atypical pneumonia less favored. No pleural effusion or p neumothorax. Heart size normal. No acute osseous abnormality.. Impression: 1: Mild interstitial edema versus atypical pneumonia. Correlate clinically correlate. Reviewed, dictated and finalized at location A. Impression: 1: Mild interstitial edema versus atypical pneumonia. Correlate clinically diamante elate.
[2020-06-14 12:23] LABS: Alanine Aminotransferase 73 U/L (4-50); Albumin Level 3.8 g/dL (3.5-5.1); Alkaline Phosphatase 60 U/L (38-126); Anion Gap 4 mmol/L (8-16); Aspartate Amino Transferase 30 U/L (17-59); Bilirubin,Total 0.8 mg/dL (0.2-1.3); Blood Urea Nitrogen 13 mg/dL (9-20); Calcium 8.5 mg/dL (8.4-10.2); Carbon Dioxide 27 mmol/L (22-30); Chloride 107 mmol/L (98-107); Estimated Glomerular Filt Rate > 60; Glucose 84 mg/dL (75-110); Sodium 138 mmol/L (137-145)
== END 2020-06-14 11:34 | disposition home or self-care (01) ==
LOC: ANHLAB 11:37
PROVIDERS: PCP Internal Medicine; Visit Provider Internal Medicine
DX: J18.9 Pneumonia, unspecified organism (principal); R94.5 Abnormal results of liver function studies
CPT/HCPCS: 36415; 71046; 80053

== ENCOUNTER → 2022-12-08 10:20 | Outpatient (CLI) | payer BC, SELFPAY ==
--- NOTE | ~2022-12-08 | XR_ITS ---
Right Knee Technique: AP, lateral, and sunrise views were obtained. Clinical History: Pain Findings: No fracture or dislocation is seen. Osseous alignment is anatomic. Joint spaces are preserv ed without degenerative or erosive change. There is chronic appearing fragmentation at the tibial tub ercle region. There is somewhat poor definition of the patellar tendon with mild infrapatellar soft t issue swelling. Soft tissues are unremarkable. No joint effusion is seen. Impression: Possible patellar tendinitis. Correlate with physical exam. Consider MR to better visualize/evaluate the patellar tendon, if clinically indicated. Findings compatible with old [place]-Schlatter's disease. Reviewed, dictated and finalized at location M. Impression: Possible patellar tendinitis. Correlate with physical exam. Consider MR to bett er visualize/evaluate the patellar tendon, if clinically indicated. Findings compatible with old [place]-Schlatter's disease.
== END ==
PROVIDERS: PCP Internal Medicine; Visit Provider Internal Medicine
DX: M25.561 Pain in right knee (principal)
CPT/HCPCS: 73560